=== PATIENT | female | born 1985 | race Two or more races ===

== ENCOUNTER 2020-07-11 06:06 | Day surgery (SDC) | payer BC ==
[2020-07-09 09:53] LABS: BASOPHILS % (AUTO) 1.1 % (0.0-2.0); EOSINOPHILS % (AUTO) 3.4 % (0.0-3.0); HEMOGLOBIN 13.4 G/DL (12.0-16.0); LYMPHOCYTES % (AUTO) 36.6 % (20.0-45.0); MEAN CORPUSCULAR VOLUME 92 FL (80-99); MONOCYTES % (AUTO) 5.9 % (1.0-10.0); PLATELET COUNT 222 K/UL (150-450); RED BLOOD COUNT 4.36 M/UL (4.20-5.40); RED CELL DISTRIBUTION WIDTH 11.6 % (11.6-14.8); WHITE BLOOD COUNT 5.3 K/UL (4.8-10.8)
[2020-07-09 10:01] LABS: ANION GAP 6 mmol/L (5-15); BLOOD UREA NITROGEN 15 mg/dL (7-18); CALCIUM 8.5 MG/DL (8.5-10.1); CARBON DIOXIDE 27 MMOL/L (21-32); CHLORIDE 106 MMOL/L (98-107); CREATININE 0.8 MG/DL (0.55-1.30); POTASSIUM 4.4 MMOL/L (3.5-5.1); SODIUM 139 MMOL/L (136-145)
[2020-07-11] VITALS (10 sets, daily range): BP systolic 118–140; BP diastolic 70–84
[~2020-07-11] VITALS: Ht 172.7 cm; Wt 77.1 kg
--- NOTE | 2020-07-11 00:30 | History and Physical Report ---
DATE OF ADMISSION: 07/11/2020 REASON FOR DICTATION: Admission for diagnostic laparoscopy, cystectomy. HISTORY OF PRESENT ILLNESS: The patient is a 35-year-old G3, P2 in January of 2020. This patient has been followed by me for many years, was noted to have a 3.5 cm right ovarian mass and right lower quadrant pain, which was a new finding despite numerous prior ultrasounds. The patient presented complaining of right lower quadrant pain. Again, she was seen after this in February for followup and the mass persisted. After this, because of COVID, her procedure was put off and then she re-presented to me in May of 2020, still complaining of right lower quadrant pain, and now she had dyspareunia as well with deep penetration and the same right-sided exophytic 3.3 cm cyst was noted, most consistent with a dermoid. The patient was extensively counseled and decision was made with her to proceed with diagnostic laparoscopy, right ovarian cystectomy versus oophorectomy, hysteroscopy. PAST SURGICAL HISTORY: x2. PAST MEDICAL HISTORY: None. ALLERGIES: Acetaminophen, hydrocodone, latex, and nitrofurantoin. REVIEW OF SYSTEMS: Consistent with dyspareunia, right lower quadrant pain. The patient denies nausea, vomiting, fever, chills, weight loss, constipation, or diarrhea. She denies fever or chills. At this point, she has no rashes. PHYSICAL EXAMINATION: GENERAL: A 35-year-old , normal weight, and in no acute distress. Height 5 feet 6.5 inches, weight 172 pounds, BMI 27.3. VITAL SIGNS: Blood pressure 110/60, respiratory rate 18, temperature 97.8. HEAD AND NECK: Pupils equal, reactive to light. LUNGS: Clear to auscultation bilaterally. CARDIAC: Regular rate and rhythm. ABDOMEN: Soft, nondistended, nontender. PELVIC: Bimanual exam, right-sided fullness. No rectal mass. EXTREMITIES: No cords. No cyanosis. No edema. LABORATORY DATA: CA-125 on 02/26/2020, 10.4. ASSESSMENT: A 35-year-old G3, P2, 1, with right lower quadrant pain and dyspareunia, with a complex exophytic right-sided ovarian mass on ultrasound. PLAN: The plan is for diagnostic laparoscopy, right ovarian cystectomy versus oophorectomy, hysteroscopy, D and C. The risks of procedures were discussed with the patient on 07/09/2020 including infection, bleeding, complications of anesthesia, pulmonary embolus, other vascular complications, and damage to other organs. The patient understood and would like to proceed. Bibiana Gorman M.D. DR: DAR JOB#: [id number] CC:
--- NOTE | 2020-07-11 07:01 | Anethesia Preoperative Eval ---
Anesthesia Pre-op PMH/ROS General Date of Evaluation: Jul 11, 2020 Anesthesiologist: Raphael ASA Score: ASA 2 Mallampati Score Class I : Soft palate, uvula, fauces, pillars visible Class II: Soft palate, uvula, fauces visible Class III: Soft palate, base of uvula visible Class IV: Only hard plate visible Mallampati Classification: Class II Surgeon: Vita Diagnosis: Ovarian cyst Surgical Procedure: Laparoscopic ovarian cystectomy, D&C hysteroscopy Anesthesia History: none Family History: no anesthesia problems Allergies: Coded Allergies: ACETAMINOPHEN (Verified Allergy, Intermediate, redness, 07/09/20) LATEX, NATURAL RUBBER (Verified Allergy, Intermediate, "flairs-up"; "patches", 07/09/20) HYDROCODONE (Verified Allergy, Unknown, 07/09/20) NITROFURANTOIN (Verified Allergy, Unknown, 07/09/20) Medications: see eMAR Patient NPO?: Yes NPO Date: Jul 11, 2020 NPO Time: 00:00 Past Medical History Cardiovascular: Denies: HTN, CAD, [place], valve dz, arrhythmia, other Pulmonary: Denies: asthma, COPD, [place], other Gastrointestinal/Genitourinary: Reports: GERD; Denies: CRI, ESRD, other Neurologic/Psychiatric: Denies: dementia, CVA, depression/anxiety, TIA, other Endocrine: Denies: DM, hypothyroidism, steroids, other HEENT: Denies: cataract (L), cataract (R), glaucoma, [place] (L), [place] (R), other Hematology/Immune: Denies: anemia, DVT, bleeding disorder, other Musculoskeletal/Integumentary: Denies: OA, RA, DJD, DDD, edema, other PSxH Narrative: lap appy, c/s x2 Anesthesia Pre-op Phys. Exam Physician Exam Last Vital Signs Date Time Temp Pulse Resp B/P (MAP) Pulse Ox O2 Delivery O2 Flow Rate FiO2 07/11/20 06:37 97.0 62 18 118/70 99 Room Air Constitutional: NAD Cardiovascular: RRR Respiratory: CTA Airway Exam Mallampati Score: Class III MO: full ROM: full Teeth: intact Anesthesia Pre-op A/P Labs see chart Urine Test Test 07/11/20 Urine HCG, Qualitative Negative (NEGATIVE) Risk Assessment & Plan Assessment: ASA II Plan: GA Status Change Before Surgery: No Pre-Antibiotics Drug: TBD Given Within 1 Hr of Incision: Yes Patito Lim MD Jul 11, 2020 07:01
[2020-07-11] MEDS ORDERED: Rocuronium Bromide 50mg/5ml Inj IV ONE (07:09)
[2020-07-11] MEDS ORDERED: cefOXitin 2gm Inj ONE (07:09)
[2020-07-11] MEDS ORDERED: Succinylcholine 20mg/ml 10ml vial ONE (07:09)
[2020-07-11] MEDS ORDERED: fentaNYL 100 mcg/2 mL IV ONE (07:24)
[2020-07-11] MEDS ORDERED: Midazolam 2mg/2ml Inj ONE (07:24)
[2020-07-11] MEDS ORDERED: Lidocaine 1% MPF 10mg/ml 5ml ONE (07:24)
[2020-07-11] MEDS ORDERED: Morphine Sulfate 10mg/ml Inj ONE (07:24)
[2020-07-11] MEDS ORDERED: Ketorolac 30mg Inj ONE (07:27)
[2020-07-11] MEDS ORDERED: Metoclopramide 10mg/2ml Inj ONE (07:27)
[2020-07-11] MEDS ORDERED: Ropivacaine 5mg/ml Vial 20ml INJ ONE (07:37)
--- NOTE | 2020-07-11 07:45 | Pre-Procedure Note/Attestation ---
Pre-Procedure Note/Attestation Complete Prior to Procedure Planned Procedure: right Procedure Narrative: diagnostic laparoscopy right ovarian cystectomy hysteroscopy dilation and curettage possible oophorectomy Indications for Procedure Pre-Operative Diagnosis: right complex mass Attestation I attest that I discussed the nature of the procedure; its benefits; risks and complications; and alternatives (and the risks and benefits of such alternatives), prior to the procedure, with the patient (or the patient's legal sales representative door to door). I attest that, if there was a reasonable possibility of needing a blood transfusion, the patient (or the patient's legal sales representative door to door) was given the [facility] standardized written summary, pursuant to the [place] Blood Safety Act ([place] Health and Safety Code # 1645, as amended). I attest that I re-evaluated the patient just prior to the surgery and that there has been no change in the patient's H&P, except as documented below: Bibiana Gorman MD Jul 11, 2020 07:45
[2020-07-11] MEDS ORDERED: LR 1000ml ONE (08:00)
[2020-07-11] MEDS ORDERED: NS Irrig 1000ml ONE (08:00)
[2020-07-11] MEDS ORDERED: Sterile Water Irrig 1000ml IRRIG ONE (08:00)
[2020-07-11] MEDS ORDERED: NS Irrig 1000ml IRRIG ONE (08:30)
[2020-07-11] MEDS ORDERED: LR 1000ml 1,000 ML IVLG SCH (09:00)
[2020-07-11] MEDS ORDERED: fentaNYL 100 mcg/2 mL IV PRN (09:00)
[2020-07-11] MEDS ORDERED: Labetalol 5mg/ml 20ml vial IV PRN (09:00)
[2020-07-11] MEDS ORDERED: DiphenhydrAMINE 50mg/ml Inj IVP PRN ×2 (09:00→10:00)
[2020-07-11] MEDS ORDERED: Morphine Sulfate 2mg/ml Inj(IV/IM USE ONLY) IVP PRN (09:00)
[2020-07-11] MEDS ORDERED: Midazolam 2mg/2ml Inj IVP PRN (09:00)
[2020-07-11] MEDS ORDERED: Metoclopramide 10mg/2ml Inj IVP PRN ×2 (09:00→10:00)
[2020-07-11] MEDS ORDERED: Ketorolac 30mg Inj IV PRN (09:00)
[2020-07-11] MEDS ORDERED: LORazepam Inj 2mg/ml 1ml IV PRN (09:00)
--- NOTE | 2020-07-11 09:53 | Immediate Post-Op Evaluation ---
Immediate Post-Op Evalulation Immediate Post-Op Evalulation Procedure: Laparoscopic right ovarian cystectomy Date of Evaluation: Jul 11, 2020 Time of Evaluation: 09:54 IV Fluids: 1.2L Blood Products: 0 Estimated Blood Loss: min Urinary Output: 200 Blood Pressure Systolic: 134 Blood Pressure Diastolic: 80 Pulse Rate: 62 Respiratory Rate: 16 O2 Sat by Pulse Oximetry: 100 Temperature (Fahrenheit): 97.9 Pain Score (1-10): 0 Nausea: No Vomiting: No Complications 0 Patient Status: awake, reacts, patent, none Hydration Status: adequate Drug: cefoxitin 2g Given Within 1 Hr of Incision: Yes Patito Lim MD Jul 11, 2020 09:53
--- NOTE | 2020-07-11 09:54 | 48 Hour Post Anesthesia Eval ---
Post Anesthesia Evaluation Procedure: Laparoscopic right ovarian cystectomy Date of Evaluation: Jul 11, 2020 Airway: patent Nausea: No Vomiting: No Hydration Status: adequate Cardiopulmonary Status: at baseline Mental Status/LOC: patient returned to baseline Post-Anesthesia Complications: 0 Follow-up care needed: ready to discharge Patito Lim MD Jul 11, 2020 09:54
--- NOTE | 2020-07-11 09:57 | Brief Operative Note ---
Immediate Post Operative Note Operative Note Pre-op Diagnosis: right complex mass Procedure: laparoscopy right cystectomy lysis of adhesions hysteroscopy dilation and curettage Post-op Diagnosis: same and adhesions between omentum and anterior abdominal wall and sigmoid and right abdominal wall Surgeon: zoran Mold Capper Helper: tori Anesthesia: general Specimen: yes - right cyst/ washings/ ecc/ emc Complications: none Condition: stable Fluids: crystalloid Estimated Blood Loss: minimal Implant(s) used?: No Bibiana Gorman MD Jul 11, 2020 09:57
[2020-07-11] MEDS ORDERED: HYDROmorphone 1mg/ml Carpuject SUBQ PRN (10:00)
[2020-07-11] MEDS ORDERED: D5 1/2NS 1,000 ML IV SCH (10:00)
[2020-07-11] MEDS ORDERED: oxyCODONE 5mg IR tab ORAL PRN (10:00)
[2020-07-11] MEDS ORDERED: Lidocaine 1% 10mg/ml/Epi 0.005mg/ml 30ml vial INJ ONE (10:14)
--- NOTE | 2020-07-11 16:30 | Operative Note - Dictated ---
DATE OF OPERATION: 07/11/2020 PREOPERATIVE DIAGNOSES: Right complex ovarian mass, right lower quadrant pain, dyspareunia. POSTOPERATIVE DIAGNOSES: Right complex ovarian mass, right lower quadrant pain, dyspareunia, right dermoid, and adhesions between omentum and anterior abdominal wall as well as adhesions between sigmoid and right abdominal wall. PROCEDURES: Diagnostic laparoscopy, right ovarian cystectomy, lysis of adhesions, hysteroscopy, dilation and curettage. Washings were obtained. ANESTHESIA: General endotracheal. SURGEON: Bibiana Gorman M.D. POLISHER HAND: Stacy Shipman M.D. ANESTHESIOLOGIST: Patito Lim M.D. FINDINGS AT SURGERY: On the right ovary, there was an exophytic 3.5 cm dermoid as well as a corpus luteum. There were adhesions between the omentum and anterior abdominal wall as well as adhesions between sigmoid and right lateral pelvic wall above the pelvic brim. Bilateral tubes were within normal limits and the left ovary was within normal limits as well as the uterus. PROCEDURE IN DETAIL: After ensuring informed consent, the patient was taken to the operating room, where general anesthesia was induced. The patient was sterilely prepped and draped. Weighted speculum was placed in the vagina. Cervix was dilated to 8 Hegar dilator. Hysteroscope was placed inside the uterine cavity. Uterine cavity was distended with normal saline. The uterine cavity was within normal limits. Bilateral ostia were visualized. Hysteroscope was removed and fractional curettage was performed. HUMI-type manipulator was placed inside the uterus. Then attention was turned to the abdomen where a small incision was made inside the umbilicus. Veress needle was placed inside the peritoneal cavity and intraperitoneal placement was confirmed with low opening pressures. CO2 gas was used to distend the peritoneal cavity. A 5 mm trocar was placed and intraperitoneal placement was confirmed with direct visualization. Pelvis was explored. There was an adhesion band between the anterior abdominal wall and omentum that was obscuring the view of the pelvis. A left lateral trocar was placed after infiltration with local under direct visualization and using bipolar and Endo Pete, the adhesion between the omentum and anterior abdominal wall was taken down sharply with Endo Pete and using bipolar cautery for excellent hemostasis. Once the field was clear, a suprapubic 10 mm trocar was placed after infiltration with local under direct visualization. Right ovary was grasped, opened up with Endo Pete and cautery. Cyst was both bluntly and sharply dissected from the underlying ovarian stroma. The cyst capsule was ruptured. There was a little bit still of sand-like material, which was suctioned off, and the rest of the cyst with fat and hair was removed through the 10 mm trocar. The ovarian stroma was cauterized where bleeding was observed. The pelvis was irrigated with 3 L of normal saline. The irrigant was completely clear. Upper abdomen was explored and there were some adhesions between the sigmoid and right lateral abdominal wall, presumably after her . The 5 mm trocar was removed under direct visualization. The gas was removed from the 10 mm trocar. The 10 mm trocar was removed under direct visualization and then the intraumbilical trocar was removed under direct visualization. The fascia was closed over the 10 mm trocar, and the 5 mm intraumbilical trocar was closed with 2-0 Vicryl, and the skin was closed with 4-0 Monocryl and Steri-Strips in all three sites. At the end of the procedure, all instrument and lap counts were correct x2. The patient was taken to the recovery area extubated and in stable condition with both Zavala and uterine manipulators removed in the OR. Bibiana Gorman M.D. DR: GUERO JOB#: [id number] CC:
== END 2020-07-11 12:25 | disposition home or self-care (01) ==
LOC: SUR 06:06
DX: N83.201 Unspecified ovarian cyst, right side (principal); N94.10 Unspecified dyspareunia; K66.0 Peritoneal adhesions (postprocedural) (postinfection); K21.9 Gastro-esophageal reflux disease without esophagitis; Z90.89 Acquired absence of other organs; Z88.6 Allergy status to analgesic agent; Z91.040 Latex allergy status
CPT/HCPCS: 36415; 49329; 58558; 58662; 80048; 81025; 85025; 85610; 85730; 94003; J0330; J0694; J1100; J1885; J2250; J2270; J2405; J2704; J2765; J2795; J3010; J7120; U0002; 94150